=== PATIENT | female | born 1975 | race Caucasian/White ===

== ENCOUNTER → 2019-05-21 | Outpatient (CLI) | payer BC ==
[2019-05-21 17:30] LABS: BASO % 0 % (0-3); EOS # 0.1 x10^3/uL (0.0-0.7); EOS % 1 % (0-3); HEMATOCRIT 40.6 % (36.0-47.0); HEMOGLOBIN 13.5 g/dL (12.0-15.5); LYMPH # 1.4 x10^3/uL (1.0-4.8); LYMPH % 19 % (24-48); MEAN CORPUSCULAR HEMOGLOBIN 28 pg (25-35); MEAN CORPUSCULAR HGB CONC 33 g/dL (31-37); MEAN CORPUSCULAR VOLUME 86 fL (79-100); MONO # 0.7 x10^3/uL (0.0-1.1); MONO % 9 % (0-9); NEUT # 5.3 x10^3uL (1.8-7.7); NEUT % 71 % (31-73); PLATELET COUNT 256 x10^3/uL (140-400); RED BLOOD COUNT 4.74 x10^6/uL (3.50-5.40); RED CELL DISTRIBUTION WIDTH 13.6 % (11.5-14.5); WHITE BLOOD COUNT 7.5 x10^3/uL (4.0-11.0)
[2019-05-22 14:15] LABS: FREE T4 0.95 ng/dL (0.76-1.46); THYROID STIM HORMONE (TSH) 1.582 uIU/mL (0.358-3.740)
[2019-05-22 17:12] LABS: DHEA SO4 168.7 ug/dL (57.3-279.2); ESTRADIOL LEVEL 6.4 pg/mL (.); FSH 22.3 mIU/mL (.); LUTEINIZING HORMONE 14.8 mIU/mL (.); T3 TOTAL 131 ng/dL (71-180)
[2019-05-22 18:09] LABS: PROGESTERONE <0.1 ng/mL (.)
== END | disposition home or self-care (01) ==
LOC: LAB 15:18
PROVIDERS: ATTEND Registered Nurse
DX: R07.89 Other chest pain (principal); N92.6 Irregular menstruation, unspecified; R53.83 Other fatigue
CPT/HCPCS: 36415; 82306; 82607; 82627; 82670; 82672; 83001; 83002; 84144; 84402; 84403; 84439; 84443; 84480; 85025; 85379

== ENCOUNTER → 2020-11-25 | Outpatient (CLI) | payer OTHER ==
--- NOTE | 2020-11-25 07:53 | RAD ---
XR CHEST 2V History: Reason: POSITIVE TB SKIN TEST / Spl. Instructions: / History: Comparison: None. Findings: No consolidation or pleural effusion. Normal heart size. No pneumothorax. No radiographic evidence of primary or latent tuberculosis. Impression: 1. No acute cardiopulmonary process. Electronically signed by: Gerry Hirsch DO (11/25/2020 7:50 AM) [id number]
== END ==
LOC: RAD 07:30
PROVIDERS: ATTEND Nurse Practitioner Family
DX: Z11.1 Encounter for screening for respiratory tuberculosis (principal)
CPT/HCPCS: 71046

== ENCOUNTER 2021-05-14 11:35 | Emergency (ER) | payer BC, OTHER ==
[~2021-05-14] VITALS: Ht 152.4 cm; Wt 104.5 kg
[2021-05-14] MEDS ORDERED: KETOROLAC 60 MG/2 ML VIAL. IM ONE (12:15)
[2021-05-14] MEDS ORDERED: ORPHENADRINE CITRATE 60 MG/2 ML VIAL. IM ONE (12:15)
[2021-05-14] MEDS ORDERED: HYDROcodone/APAP 7.5/325MG 1 TAB TABLET PO ONE (12:15)
--- NOTE | 2021-05-14 12:29 | PHYS DOC ---
Past History Past Surgical History: Alcohol Use: None General Adult EDM: Chief Complaint: BACK PAIN OR INJURY HPI: HPI: Patient is a 45-year-old female coming in for right low back.. Patient will patient will chiropractor twice and had several procedures done without improvement. Patient states the pain is in her right lower back and to her hip and thigh. 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 She states that she has been also on the seesaw with the cat frequently which is new for her and bouncing up and down on it. States that the pain is improved by laying on her floor with a heating pad. Denies any fevers. Denies any hematuria or dysuria. Patient denies possibility of , states that she has a BTL. Review of Systems: Review of Systems: All other systems within normal limits except for as noted in the HPI Current Medications: Current Meds: Current Medications Medications (Trade) Dose Ordered Sig/Yeny Start Time Stop Time Status Last Admin Dose Admin Acetaminophen/ Hydrocodone Bitart (Lortab 7.5/325) 1 tab 1X ONCE 05/14/21 12:15 05/14/21 12:16 DC 05/14/21 12:16 1 TAB Ketorolac Tromethamine (Toradol Im) 60 mg 1X ONCE 05/14/21 12:15 05/14/21 12:16 DC 05/14/21 12:17 60 MG Orphenadrine Citrate (Norflex) 60 mg 1X ONCE 05/14/21 12:15 05/14/21 12:16 DC 05/14/21 12:17 60 MG Allergies: Allergies: Allergies Coded Allergies Type Severity Reaction Last Updated Verified Sulfa (Sulfonamide Antibiotics) Allergy Unknown 05/14/21 Yes Physical Exam: PE: Constitutional: Well developed, well nourished, no acute distress, non-toxic appearance. [] HENT: Normocephalic, atraumatic, bilateral external ears normal, nose normal. [] Eyes: PERRLA, conjunctiva normal, no discharge. [] Neck: No rigidity, supple, no stridor. [] Cardiovascular: Regular rate and rhythm, brisk cap refill [] Lungs & Thorax: Non labored symmetric respirations, no tachypnea or respiratory distress [] Abdomen: Soft, nondistended. Skin: Warm, dry, no erythema, no rash. [] Back: Unremarkable, no point tenderness on the spine, no step-off or deformity, has point tenderness over right piriformis muscle Extremities: No deformities, range of motion grossly intact, no lower extremity edema [] Neurologic: Alert and oriented X 3, no focal deficits noted. [] Psychologic: Affect normal, judgement normal, mood normal. [] Current Patient Data: Vital Signs: Vital Signs Date Time Temp Pulse Resp B/P (MAP) Pulse Ox O2 Delivery O2 Flow Rate FiO2 05/14/21 11:58 98.2 90 18 132/83 (99) 97 Room Air EKG: EKG: [] Radiology/Procedures: Radiology/Procedures: [address] [address] IMAGING REPORT Signed PATIENT: SHERMAN RICHARDSONACCOUNT: [id number] : 1975 LOCATION: ER AGE: 45 SEX: F EXAM STATUS: REG ER ORD. PHYSICIAN: SPRING HYLTON MD REASON: pain, right low back and hip PROCEDURE: CT PELVIS WO CONTRAST CT PELVIS WO DATE: 05/14/2021 12:30 PM INDICATION: pain, right low back and hip TECHNIQUE: Multidetector helical CT scan through the pelvis was performed. Coronal and sagittal 2 D reconstructions were generated. Images were reviewed on the PACS workstation at soft tissue and osseous window settings. One or more of the following individualized dose reduction techniques were utilized for this examination: 1. Automated exposure control 2. Adjustment of the mA and/or kV according to patient size 3. Use of iterative reconstruction technique COMPARISON: None FINDINGS: Bones: There is no acute fracture or dislocation. Joints: The joint spaces are normal. Soft tissues: No fluid collections or focal soft tissue swelling. IMPRESSION: No acute osseous abnormality. Electronically signed by: Sylvester Segal MD (05/14/2021 1:18 PM) [facility] DICTATED AND SIGNED BY: SYLVESTER SEGAL MD DATE: 05/14/21 1312 CC: SPRING HYLTON MD; MANUEL MORALES MD ~MTH0 0 [] Heart Score: C/O Chest Pain: No Risk Factors: Risk Factors: DM, Current or recent (<one month) smoker, HTN, HLP, family history of CAD, obesity. Risk Scores: Score 0 - 3: 2.5% MACE over next 6 weeks - Discharge Home Score 4 - 6: 20.3% MACE over next 6 weeks - Admit for Clinical Observation Score 7 - 10: 72.7% MACE over next 6 weeks - Early Invasive Strategies Course & Med Decision Making: Course & Med Decision Making Pertinent Labs and Imaging studies reviewed. (See chart for details) [] Dragon Disclaimer: Dragon Disclaimer: This electronic medical record was generated, in whole or in part, using a voice recognition dictation system. Departure Departure: Impression: Primary Impression: Back pain Additional Impression: Piriformis syndrome of right side Disposition: HOME / SELF CARE / HOMELESS Condition: IMPROVED Referrals: MANUEL MORALES MD (PCP) Patient Instructions: Piriformis Syndrome with [facility]hab[facility] Scripts Acetaminophen With Codeine (ACETAMINOPHEN-COD #3 TABLET) 1 Each Tablet 1 TAB PO PRN Q6HRS PRN for PAIN for 3 Days, #10 TAB Prov: SPRING HYLTON MD 05/14/21 Cyclobenzaprine Hcl (CYCLOBENZAPRINE HCL) 10 Mg Tablet 1 TAB PO TID PRN for MUSCLE SPASMS for 5 Days, #15 TAB Prov: SPRING HYLTON MD 05/14/21 SPRING HYLTON MD May 14, 2021 12:29
--- NOTE | 2021-05-14 13:21 | RAD ---
CT LUMBAR SPINE WO Date: 05/14/2021 12:30 PM Indication: Reason: pain, right low back and hip / Spl. Instructions: / History: Comparison: None. Technique: Helical CT images of the lumbar spine were obtained without contrast. Coronal and sagitta l reformatted images were also performed. One or more of the following dose reduction techniques were utilized: Automated exposure control (AEC), Adjustment of mA and/or kV according to patient size, Us e of iterative reconstruction technique such as ASiR, CT scan done according to ALARA and image gentl y/image wisely. Findings: The lumbar spine is normally aligned. No acute fracture. Vertebral body heights are maintained withou t compression deformity. Mild multilevel degenerative disc disease, moderate at L4-5. No aggressive l ytic or blastic osseous lesion. Mild bilateral neural foraminal narrowing at L4-5. No high grade spinal canal stenosis or neuroforami nal narrowing. Nonobstructive right renal 2 mm calculus. The visualized abdominal aorta is normal caliber. IMPRESSION: No acute osseous abnormality of the lumbar spine. Mild to moderate lumbar spondylosis. No high-grade spinal canal stenosis or neural foraminal narrowin g. Electronically signed by: Christopher Segal MD (05/14/2021 1:18 PM) [facility]
--- NOTE | 2021-05-14 13:21 | RAD ---
CT PELVIS WO DATE: 05/14/2021 12:30 PM INDICATION: pain, right low back and hip TECHNIQUE: Multidetector helical CT scan through the pelvis was performed. Coronal and sagittal 2 D r econstructions were generated. Images were reviewed on the PACS workstation at soft tissue and osseou s window settings. One or more of the following individualized dose reduction techniques were utilized for this examinat ion: 1. Automated exposure control 2. Adjustment of the mA and/or kV according to patient size 3. Use of iterative reconstruction technique COMPARISON: None FINDINGS: Bones: There is no acute fracture or dislocation. Joints: The joint spaces are normal. Soft tissues: No fluid collections or focal soft tissue swelling. IMPRESSION: No acute osseous abnormality. Electronically signed by: Christopher Segal MD (05/14/2021 1:18 PM) ADI
[2021-05-14 14:05] VITALS: BP 127/81
[2021-05-14] MEDS ORDERED: ACET1TAB33 PO (14:09)
[2021-05-14] MEDS ORDERED: CYCL-331 PO (14:09)
== END 2021-05-14 14:48 | disposition home or self-care (01) ==
LOC: ER 11:35
DX: M54.50 Low back pain, unspecified (principal); G57.01 Lesion of sciatic nerve, right lower limb; Z88.2 Allergy status to sulfonamides
CPT/HCPCS: 72131; 72192; 96372; 99285; J1885; J2360

== ENCOUNTER 2021-07-06 14:32 | Emergency (ER) | payer BC ==
[~2021-07-06] VITALS: Ht 149.9 cm; Wt 131.0 kg
[~2021-07-06 14:32] MED LIST: ACET1TAB33 PO; CYCL10TA19 PO
[2021-07-06] MEDS ORDERED: ADENOSINE 6 MG/2 ML VIAL IV ONE ×2 (14:49→16:00)
[2021-07-06] MEDS ORDERED: IV NORMAL SALINE 1,000ML 1,000 ML IV SCH (15:00)
[2021-07-06] MEDS ORDERED: ASPIRIN CHEWABLE 81 MG TABLET. PO ONE (15:00)
--- NOTE | 2021-07-06 15:11 | RAD ---
XR CHEST 1V History: Reason: tachycardia / Spl. Instructions: / History: Comparison: None. Findings: No consolidation or pleural effusion. Normal heart size. No pneumothorax. Impression: 1. No acute cardiopulmonary process. Electronically signed by: Gerry Hirsch DO (07/06/2021 3:09 PM) [id number]
[2021-07-06 15:13] LABS: BASO # 0.1 x10^3/uL (0.0-0.2); BASO % 1 % (0-3); EOS # 0.1 x10^3/uL (0.0-0.7); EOS % 1 % (0-3); HEMATOCRIT 44.2 % (36.0-47.0); HEMOGLOBIN 14.7 g/dL (12.0-15.5); LYMPH # 3.5 x10^3/uL (1.0-4.8); LYMPH % 40 % (24-48); MEAN CORPUSCULAR HEMOGLOBIN 28 pg (25-35); MEAN CORPUSCULAR HGB CONC 33 g/dL (31-37); MEAN CORPUSCULAR VOLUME 85 fL (79-100); MONO # 0.6 x10^3/uL (0.0-1.1); MONO % 7 % (0-9); NEUT # 4.5 x10^3uL (1.8-7.7); NEUT % 51 % (31-73); PLATELET COUNT 308 x10^3/uL (140-400); RED BLOOD COUNT 5.18 x10^6/uL (3.50-5.40); RED CELL DISTRIBUTION WIDTH 13.5 % (11.5-14.5); WHITE BLOOD COUNT 8.8 x10^3/uL (4.0-11.0)
[2021-07-06 15:28] LABS: CALCIUM 8.8 mg/dL (8.5-10.1); CREATININE 0.5 mg/dL (0.6-1.0); GFR 132.8; POTASSIUM 4.4 mmol/L (3.5-5.1)
[2021-07-06 15:33] LABS: ALBUMIN 3.8 g/dL (3.4-5.0); MAGNESIUM 1.7 mg/dL (1.8-2.4); TOTAL BILIRUBIN 0.5 mg/dL (0.2-1.0); TOTAL PROTEIN 7.5 g/dL (6.4-8.2)
--- NOTE | 2021-07-06 16:04 | PHYS DOC ---
Past History Additional Past Medical Histor: SVT Past Surgical History: , Tonsillectomy Alcohol Use: None Adult General Chief Complaint Chief Complaint: CHEST PAIN HPI HPI Patient is a 45yo femalre presenting via POV for palpitations. Little history obtained as patient speaking in few word sentences only. States she has had x1 prior episode prompting Adenosine use that resolved her symptoms. Denies any alcohol, illicit drug or other concerning precipitating factors that sparked her symptoms ~30 mins prior to arrival. Review of Systems Review of Systems Fourteen body systems of review of systems have been reviewed. See HPI for pertinent positives and negative responses, other shirley all other systems are negative, non-pertinent or non-contributory Current Medications Current Medications Current Medications Medications (Trade) Dose Ordered Sig/Yeny Start Time Stop Time Status Last Admin Dose Admin Adenosine (Adenocard) 6 mg 1X ONCE 07/06/21 16:00 07/06/21 16:01 UNV Aspirin (Aspirin Chewable) 162 mg 1X ONCE 07/06/21 15:00 07/06/21 15:01 DC 07/06/21 15:13 162 MG Sodium Chloride 1,000 ml @ 1,000 mls/hr Q1H 07/06/21 15:00 07/06/21 15:59 DC 07/06/21 15:03 1,000 MLS/HR Allergies Allergies Allergies Coded Allergies Type Severity Reaction Last Updated Verified Milk Containing Products Allergy Intermediate 07/06/21 Yes Sulfa (Sulfonamide Antibiotics) Allergy Unknown 05/14/21 Yes Physical Exam Physical Exam Constitutional: Appears older than stated age, ill-appearing, speaking in few word sentences only HENT: Normocephalic, atraumatic, bilateral external ears normal, oropharynx moist, no oral exudates, nose normal. Eyes: PERRLA, EOMI, conjunctiva normal, no discharge. Neck: Normal range of motion, no tenderness, supple, no stridor. Cardiovascular: Heart rate tachycardic, sinus rhythm, no murmurs rubs or gallops Lungs & Thorax: Increased work of breathing, tachypneic, speaking in few word sentences only Abdomen: Bowel sounds normal, soft, no tenderness, no masses, no pulsatile masses. Nonsurgical abdomen, no peritoneal signs Skin: Warm, diaphoretic, no erythema, no rash. Back: No tenderness, no CVA tenderness. Extremities: No tenderness, no cyanosis, no clubbing, ROM intact, no edema. Neurologic: Alert and oriented X 3, grossly normal motor & sensory function, no focal deficits noted. Psychologic: Anxious affect and mood Current Patient Data Vital Signs Vital Signs Date Time Temp Pulse Resp B/P (MAP) Pulse Ox O2 Delivery O2 Flow Rate FiO2 07/06/21 15:09 108 20 115/78 (90) 100 Room Air Lab Results Laboratory Tests Test 07/06/21 14:48 White Blood Count 8.8 x10^3/uL (4.0-11.0) Red Blood Count 5.18 x10^6/uL (3.50-5.40) Hemoglobin 14.7 g/dL (12.0-15.5) Hematocrit 44.2 % (36.0-47.0) Mean Corpuscular Volume 85 fL (79-100) Mean Corpuscular Hemoglobin 28 pg (25-35) Mean Corpuscular Hemoglobin Concent 33 g/dL (31-37) Red Cell Distribution Width 13.5 % (11.5-14.5) Platelet Count 308 x10^3/uL (140-400) Neutrophils (%) (Auto) 51 % (31-73) Lymphocytes (%) (Auto) 40 % (24-48) Monocytes (%) (Auto) 7 % (0-9) Eosinophils (%) (Auto) 1 % (0-3) Basophils (%) (Auto) 1 % (0-3) Neutrophils # (Auto) 4.5 x10^3uL (1.8-7.7) Lymphocytes # (Auto) 3.5 x10^3/uL (1.0-4.8) Monocytes # (Auto) 0.6 x10^3/uL (0.0-1.1) Eosinophils # (Auto) 0.1 x10^3/uL (0.0-0.7) Basophils # (Auto) 0.1 x10^3/uL (0.0-0.2) Sodium Level 137 mmol/L (136-145) Potassium Level 4.4 mmol/L (3.5-5.1) Chloride Level 100 mmol/L (98-107) Carbon Dioxide Level 24 mmol/L (21-32) Anion Gap 13 (6-14) Blood Urea Nitrogen 12 mg/dL (7-20) Creatinine 0.5 mg/dL (0.6-1.0) L Estimated GFR (Cockcroft-Gault) 132.8 BUN/Creatinine Ratio 24 (6-20) H Glucose Level 224 mg/dL (70-99) H Calcium Level 8.8 mg/dL (8.5-10.1) Magnesium Level 1.7 mg/dL (1.8-2.4) L Total Bilirubin 0.5 mg/dL (0.2-1.0) Aspartate Amino Transferase (AST) 27 U/L (15-37) Alanine Aminotransferase (ALT) 34 U/L (14-59) Alkaline Phosphatase 104 U/L (46-116) Troponin I High Sensitivity 6 ng/L (4-50) GT-Zjw-U-Type Natriuretic Peptide 64 pg/mL (0-124) Total Protein 7.5 g/dL (6.4-8.2) Albumin 3.8 g/dL (3.4-5.0) Albumin/Globulin Ratio 1.0 (1.0-1.7) EKG EKG EKG ordered and interpreted by myself at 1440 hrs. as SVT at 213 bpm, QRS 72 and QTC 513, no axis deviation, no acute ischemic findings, no STEMI Repeat EKG obtained after successful adenosine conversion showing sinus tachycardia at 112 bpm, unremarkable intervals, no axis deviation, T wave inversion noted in lead III, no STEMI Radiology/Procedures Radiology/Procedures XR CHEST 1V History: Reason: tachycardia / Spl. Instructions: / History: Comparison: None. Findings: No consolidation or pleural effusion. Normal heart size. No pneumothorax. Impression: 1. No acute cardiopulmonary process. Electronically signed by: Gerry Hirsch DO (07/06/2021 3:09 PM) [id number] Heart Score C/O Chest Pain: No Risk Factors: Risk Factors: DM, Current or recent (<one month) smoker, HTN, HLP, family history of CAD, obesity. Risk Scores: Risk Factors: DM, Current or recent (<one month) smoker, HTN, HLP, family history of CAD, obesity. Course & Med Decision Making Course & Med Decision Making Airway patient, breathing labored, IV access and vitals obtained concerning for tachycardia. EKG obtained concerning for SVT Vagal maneuvers attempted without success, pads placed and joint-decision made with patient to push 6mg adenosine which ultimately converted her rhythm confirmed by repeat EKG. IVF and ASA provided after. Further history obtained after improvement in tachyarrhythmia, states she had MD in 2015 and on all appropriate meds. States an ER visit several years later for bronchospasm prompted ER physician to advise against continued b-barak use States first episode of SVT was 2018 prompting ER visit and adenosine admi nistration, she was ultimately discharged home. She has not seen a farm machine tender since. I discussed all findings today and discussed unknown cause I contacted farm machine tender attending [facility] and discussed case, he recommended starting patient on Cardizem ER with close outpatient follow-up for continued workup (echocardiogram etc) I discussed this conversation and plan of care with patient who was amenable. All questions and concerns addressed prior to ER departure in improved condition Given the high probability of imminent or life threatening deterioration of the patients condition without intervention, the patient was immediately assessed by myself and the nurse, and cardiac monitoring initiated. The patient was also placed on oxygen and continuous pulse oximetry initiated. During the course of the patients stay, I spent a considerable amount of time at the bedside performing serial re-evaluations of the patients hemodynamic and clinical status because of the recognized potential threat to life or limb in this condition. Clinical management of this patient involved high complexity decision making to assess, manipulate, and support vital organ system failure. I then had a chance to review all of the available laboratory and radiographic studies obtained today, and I also reviewed old records available to me at the time. Sequential vital signs were obtained. Critical care time noted below was time spent engaged in work directly related to the individual patients care, not including time performing procedures; however it does include time spent at the immediate bedside or elsewhere on the floor or unit. TOTAL CRITICAL CARE TIME ELAPSED: 45 mins BODY SYSTEM AT HIGHEST RISK: Cardiac. Dragon Disclaimer Dragon Disclaimer This electronic medical record was generated, in whole or in part, using a voice recognition dictation system. Departure Departure: Impression: Primary Impression: SVT (supraventricular tachycardia) Disposition: HOME / SELF CARE / HOMELESS Condition: IMPROVED Referrals: MANUEL MORALES MD (PCP) SEBASTIAN PENDLETON MD Patient Instructions: Supraventricular Tachycardia Additional Instructions: You were seen for chest pain. You had supraventricular tachycardia that required adenosine medication administration to convert your rhythm and subsequent rate. Cardiology services were consulted and advised starting Cardizem medication by mouth which you should take daily. You need to take this daily and call their office with information attached to review need for close outpatient follow-up within upcoming week. You should return to the ED if you develop worsening chest pain, shortness of breath, fever, abnormal sweating, leg swelling, or any other new or concerning symptoms. Scripts Diltiazem Hcl (CARDIZEM CD) 180 Mg Cap.er.24h 1 CAP PO DAILY for TACHYARYTHMIA, #30 CAP 1 Refill Prov: ALISE JUSTICE DO 07/06/21 ALISE JUSTICE DO Jul 06, 2021 16:03
[2021-07-06] MEDS ORDERED: IV NORMAL SALINE 1,000ML 1,000 ML IV ONE (16:30)
[2021-07-06 16:43] LABS: BARBITURATES NEG (NEG); BENZODIAZEPINES NEG (NEG); CANNABINOIDS NEG (NEG); COCAINE NEG (NEG); METHADONE NEG (NEG); OPIATES NEG (NEG); PHENCYCLIDINE NEG (NEG)
[2021-07-06 16:47] LABS: CLARITY,URINE CLEAR; COLOR,URINE YELLOW
[2021-07-06 16:48] LABS: BACTERIA,URINE 0 /HPF (0-FEW); BILIRUBIN,URINE NEG (NEG); GLUCOSE,URINE NEG (NEG); NITRITE,URINE NEG (NEG); RBC,URINE 0 /HPF (0-2); SQUAMOUS EPITHELIAL CELL,UR OCC /LPF; UROBILINOGEN,URINE 0.2 mg/dL (0.2 mg/dL); WBC,URINE 0 /HPF (0-4)
[2021-07-06 16:49] LABS: AMPHETAMINE/METHAMPHETAMINE NEG (NEG)
--- NOTE | 2021-07-06 17:13 | EKG ---
[address] [address] Test Date: 2021-07-06 Test Time: 14:39:59 Pat Name: SHERMAN RICHARDSON Department: Room: Gender: F Bulb Brander: JACKI : 1975 Requested By: ALISE JUSTICE Order Number: [id number] Reading MD: José Manuel Solares Measurements Intervals [place] Rate: 213 P: [place]: QRS: -5 QRSD: 72 T: 17 QT: 272 QTc: 513 Interpretive Statements SUPRAVENTRICULAR TACHYCARDIA Electronically Signed On 07-08-2021 16:06:09 MERCHANDISE TEAM MANAGER by José Manuel Solares
--- NOTE | 2021-07-06 17:20 | EKG ---
[address] [address] Test Date: 2021-07-06 Test Time: 16:12:01 Pat Name: SHERMAN RICHARDSON Department: Room: Gender: F Residence Counselor: MULUGETA : 1975 Requested By: ALISE JUSTICE Order Number: [id number] Reading MD: José Manuel Solares Measurements Intervals [place] Rate: 112 P: 51 [place]: 136 QRS: 6 QRSD: 70 T: 6 QT: 324 QTc: 444 Interpretive Statements SINUS TACHYCARDIA NON SPECIFIC ST-T WAVE CHANGES Electronically Signed On 07-08-2021 16:05:53 MARGARINE CHURN OPERATOR by José Manuel Solares
[2021-07-06] MEDS ORDERED: DILT180C2 PO (17:39)
[2021-07-06] MEDS ORDERED: HEPARIN 25,000UTS/250ML PREMIX 250 ML IV PRN (18:30)
[2021-07-06] MEDS ORDERED: HEPARIN for IV BOLUS 10,000 UNIT/10 ML VIAL. IV ONE (18:30)
[2021-07-06] MEDS ORDERED: HEPARIN for IV BOLUS 10,000 UNIT/10 ML VIAL. IV PRN (18:30)
[2021-07-06 18:35] VITALS: BP 124/43
== END 2021-07-06 18:43 | disposition home or self-care (01) ==
LOC: ER 14:32
DX: I47.1 Supraventricular tachycardia (principal); Z91.011 Allergy to milk products; Z88.2 Allergy status to sulfonamides
CPT/HCPCS: 36415; 71045; 80053; 80307; 81001; 81025; 83735; 83880; 84443; 84484; 85025; 85610; 85730; 93005; 96361; 96374; 99285; J0153; J7030